=== PATIENT | female | born 1950 | race Caucasian/White ===

== ENCOUNTER → 2016-07-03 | Outpatient (CLI) | payer MEDICARE, OTHER ==
[~2016-07-03] MED LIST: ACID CONTROL150 M1 PO; DULOXETINE HCL60 MG PO; LIPITOR40 MG PO; LYRICA200 MG PO; METOPROLOL TAR25 MG PO; NEXIUM40 M1 PO; OXYCODON-ACETA1 EAC1 PO; REQUIP XL2 MG PO; SOTALOL AF80 M1 PO; XARELTO15 MG PO
--- NOTE | ~2016-07-03 | CR97 ---
[facility] A Service of [facility] & [facility] RADIOLOGY TEXT RESULTS PATIENT: BROWN CHAUDHRY LOCATION: [facility] : 48 UNIT #: [id number] AGE: [address]: Joseph Alvarenga III, MD SEX: F ORDER DR: [id number] [facility] [address] [place], [place] [address] [id number] O MR#: [id number] Acc #: [id number] NAME: BROWN CHAUDHRY : 1950 SEX: F STUDY DATE/TIME: 07/03/2016 8:16 UNIT: [facility] ROOM: STUDY DESCRIPTION: CR Esophagram Attending Physician: Joseph Alvarenga III, M.D. Referring Physician: Joseph Alvarenga III, M.D. Ordering Physician: Joseph Alvarenga III, M.D. MEDICAL IMAGING REPORT This report is preliminary unless electronic signature is present EXAM Barium esophagram INDICATIONS Morbid obesity. Preop for LAP-band surgery. TECHNIQUE The fluoroscopy time 0.4 minutes. 6 fluoroscopic images were taken. FINDINGS There are mild tertiary contractions. There is a small sliding hiatal hernia. The study is otherwise unremarkable. IMPRESSION Small sliding hiatal hernia, otherwise unremarkable. Dictated by... Dom Hernandez M.D. THIS IS AN ELECTRONICALLY VERIFIED REPORT Dom Hernandez M.D. at 07/04/2016 9:47 AM MISHA/pcl TD: 07/03/2016 20:13 JOB #: [id number] MEDICAL IMAGING REPORT Page 1 of 1 COPY
--- NOTE | ~2016-07-03 | CR63 ---
[facility] A Service of [facility] & [facility] RADIOLOGY TEXT RESULTS PATIENT: BROWN CHAUDHRY LOCATION: [facility] : 48 UNIT #: [id number] AGE: [address]: Joseph Alvarenga III, MD SEX: F ORDER DR: [id number] [facility] [address] [facility]. [place], [place] [address] [id number] O MR#: [id number] Acc #: [id number] NAME: BROWN CHAUDHRY : 1950 SEX: F STUDY DATE/TIME: 07/03/2016 7:25 UNIT: [facility] ROOM: STUDY DESCRIPTION: CR Chest 2 View Attending Physician: Joseph Alvarenga III, M.D. Referring Physician: Joseph Alvarenga III, M.D. Ordering Physician: Joseph Alvarenga III, M.D. Primary Care Physician: Tamela Oropeza MEDICAL IMAGING REPORT This report is preliminary unless electronic signature is present EXAM Chest PA and lateral 07/04/2015 HISTORY Shortness of breath on exertion. Morbid obesity, preop laparoscopic gastric banding. Benign essential hypertension. FINDINGS There is no prior chest radiograph for comparison. The heart is minimally enlarged status post median sternotomy. The lungs are clear. There are no pleural effusions. IMPRESSION Mild cardiac enlargement status post median sternotomy. No active pulmonary disease. Dictated by... Crispin Boo M.D. THIS IS AN ELECTRONICALLY VERIFIED REPORT Crispin Boo M.D. at 07/03/2016 4:30 PM CHRISSIE/vivek TD: 07/03/2016 11:14 JOB #: [id number] MEDICAL IMAGING REPORT Page 1 of 1 COPY
--- NOTE | ~2016-07-03 | EKG ---
PATIENT: BROWN CHAUDHRY UNIT #: [id number] Ventricular Rate: 72 BPM Atrial Rate: 72 BPM P-R Interval: 156 ms QRS Duration: 88 ms Q-T Interval: 402 ms QTC Calculation(Bezet): 440 ms Calculated R [place]: 8 degrees Calculated T [place]: 42 degrees Diagnosis Line: Sinus rhythm with Premature atrial complexes Diagnosis Line: Otherwise normal ECG Diagnosis Line: No previous ECGs available Diagnosis Line: Confirmed by EVELINA LEBLANC MD ([id number]) on Diagnosis Line: 07/03/2016 1:37:28 PM INTERPRETING MD: DEANA SHIELDS
[2016-07-03 09:17] LABS: HEMATOCRIT 36.5 % (35.0-45.0); HEMOGLOBIN 11.8 gm/dL (12.0-16.0); MEAN CELL VOLUME 91.5 FL (83-96); MEAN CORPUSCULAR HEMOGLOBIN 29.5 PG (28-34); MEAN CORPUSCULAR HGB CONC 32.2 g/dL (30-36); MEAN PLATELET VOLUME 7.8 FL (6.5-11.5); RED BLOOD COUNT 3.99 X10e (3.90-5.30); RED CELL DISTRIBUTION WIDTH 13.8 % (11.0-15.5); WHITE BLOOD COUNT 9.1 X10e3 (4.0-10.5)
[2016-07-03 09:51] LABS: ALBUMIN SERUM 3.5 g/dL (3.5-5.0); BILIRUBIN,TOTAL 0.8 mg/dL (0.2-2.0); BUN/CREATININE RATIO 32.85; CALCIUM SERUM 9.1 mg/dL (8.4-10.2); CREATININE SERUM 0.7 mg/dL (0.6-1.4); POTASSIUM 4.5 mmol/L (3.5-5.1); PROTEIN TOTAL SERUM 6.4 g/dL (6.0-8.3)
== END | disposition home or self-care (01) ==
LOC: CRAD 06:54 → CAMB 09:30
PROVIDERS: Surgery
DX: Z01.818 Encounter for other preprocedural examination (principal); K44.9 Diaphragmatic hernia without obstruction or gangrene; I49.1 Atrial premature depolarization; I51.7 Cardiomegaly; E66.01 Morbid (severe) obesity due to excess calories; Z98.890 Other specified postprocedural states
CPT/HCPCS: 36415; 71020; 74220; 80053; 80061; 84443; 85027; 93005

== ENCOUNTER 2016-07-15 06:07 | Inpatient (IN) | payer MEDICARE, OTHER ==
--- NOTE | ~2016-07-15 | HP ---
Unit #: [id number] #: [id number] Patient: BROWN CHAUDHRY [id number] [facility] [address] [facility]. [place], [place] [address] [id number] I MR#: [id number] NAME: BROWN CHAUDHRY ROOM: 463 Age: 66 Sex: F Admission Date: 07/17/2016 : 1950 Attending Physician: Joseph Alvarenga III, M.D. Primary Care Physician: Tamela Oropeza HISTORY AND PHYSICAL CHIEF COMPLAINT Postoperative anemia. HISTORY OF PRESENT ILLNESS The patient is a 66-year-old white female who is 3 days status post lap band procedure for obesity. She went home without major problems. There were no complications during her surgery according to Dr. Alvarenga, but she did not drink much at home and became confused yesterday with weakness. She was taken to the emergency room by her family and noted to have a hemoglobin of 5.5.6. Her hemoglobin initially was 11.8 approximately a week and a half ago. The patient was transfused three units of blood and stat flighted to [facility] for further care. PAST MEDICAL HISTORY Her history is unchanged since three days ago when she had her surgery. PHYSICAL EXAMINATION GENERAL: The patient is a well-developed, well-nourished 66-year-old white female in no acute distress. VITALS: The patient is afebrile. Vital signs are normal. Her pulse is 98. HEENT: Unremarkable. NECK: Supple. LUNGS: Clear bilaterally. CHEST: Equal bilateral expansion with bilaterally equal breath sounds. HEART: Regular rhythm without murmurs or gallops. There is no evidence of cardiomegaly clinically. ABDOMEN: Soft. Mildly tender with a large ecchymotic area in the left upper quadrant abdominal wall region, without evidence of any significant hematoma. Wounds are clean and healing with no evidence of infection of herniation. There are no masses or organomegaly. No gross abdominal distension. No guarding or rebound. Active bowel sounds present. No evidence of any hernias, as noted above. BACK: There is no CVA tenderness. NEUROLOGIC: Grossly intact without evidence of any deficits. DIAGNOSTIC STUDIES IMAGING: CT scan in the emergency room in [place] revealed evidence of free fluid in the abdomen and probably some blood. There was no evidence of any splenic rupture. ASSESSMENT The patient has significant postoperative bleed following lap band procedure. Unit #: [id number] #: [id number] Patient: BROWN CHAUDHRY PLAN Observe her for now and transfuse her as necessary. At present it does not appear that the patient will need any further surgery. Dictated by Peewee Miller Jr., M.D. JMB/krysten TD: 07/18/2016 07:43 JOB #: [id number] HISTORY AND PHYSICAL Page 1 of 1 X Peewee Miller MD X HISTORY AND PHYSICAL
--- NOTE | ~2016-07-15 | DS ---
Unit #: [id number] #: [id number] Patient: BROWN CHAUDHRY [id number] [facility]. [place], [place] [address] [id number] I MR#: [id number] NAME: BROWN CHAUDHRY ROOM: 463 Age: 66 Sex: F Admission Date: 07/20/2016 : 1950 Discharge Date: 07/22/2016 Attending Physician: Joseph Alvarenga III, M.D. Primary Care Physician: Tamela Oropeza DISCHARGE SUMMARY REVISED REPORT CONSULTATION Dr. Clemens. ADMITTING/DISCHARGE DIAGNOSIS Status post lap band with postop anemia secondary to bleeding. SECONDARY DIAGNOSES History of atrial flutter with rapid ventricular response and significant tachycardia. PROCEDURE PERFORMED None. BRIEF HOSPITAL COURSE This is a 66-year-old lady who was admitted several days after undergoing lap banding. She was diagnosed with severe anemia and was transferred here to [place]. She underwent transfusion and since then her hemoglobin has steadily gone upwards every day. At the time of discharge, her hemoglobin was 10 and at the time of admission her hemoglobin was 5.6. She also developed some significant tachycardia for which we consulted cardiology. There were numerous medication changes that had to take place. Prior to discharge, her hemoglobin was stable and her heart rate had come down to the 70s and 80s. She was tolerating liquids without any difficulty. DISPOSITION Discharge to home. She is to follow up with me in the office next week for routine lap band followup. She is to resume her lap band discharge instructions that were given to her last week. Will have cardiology address her Med Rec form since there have been numerous changes to her heart medications. She has been instructed to call us if there are any other problems. Dictated by... Joseph Alvarenga III, M.D. VCL/arnold TD: 07/22/2016 12:51 Unit #: [id number] #: [id number] Patient: BROWN CHAUDHRY JOB #: [id number] DISCHARGE SUMMARY Page 1 of 1 X Joseph Alvarenga III, MD X DISCHARGE SUMMARY
--- NOTE | ~2016-07-15 | CR7 ---
[facility] A Service of [facility] & [facility] RADIOLOGY TEXT RESULTS PATIENT: BROWN CHAUDHRY LOCATION: [facility] : 48 UNIT #: [id number] AGE: [address]: Joseph Alvarenga III, MD SEX: F ORDER DR: [id number] [facility] [address] [facility]. [place], [place] [address] [id number] O MR#: [id number] Acc #: [id number] NAME: BROWN CHAUDHRY : 1950 SEX: F STUDY DATE/TIME: 07/15/2016 8:34 UNIT: [facility] ROOM: STUDY DESCRIPTION: CR Abdomen Single AP View Attending Physician: Joseph Alvarenga III, M.D. Ordering Physician: Joseph Alvarenga III, M.D. Primary Care Physician: Tamela Oropeza MEDICAL IMAGING REPORT This report is preliminary unless electronic signature is present EXAM AP radiograph of the abdomen, 07/15/2016 HISTORY Postop Lap-Band PACU front. FINDINGS AP radiograph of the abdomen is presented. The patient is status post median sternotomy. Metallic density superimposed over the heart may represent some form of valvular replacement. Correlate with history. Prior cholecystectomy. There is a linear metallic density superimposed over the central and right paracentral thoracolumbar junction of unclear exact etiology. Also seen on prior esophagram. It may reflect some prior intervention. Correlate with history. Interval placement of a Lap-Band device, the band component of which is at the level of the gastroesophageal junction based on esophagram dated 07/03/2016. Band component approximately 58 degrees from the vertical. Catheter component intact. Port component implanted over the upper left paracentral pelvis. Bowel gas pattern is normal. Extensive air space disease in the visualized bilateral lung bases, left greater than right. This is new in comparison to the recent esophagram and is concerning for potential bibasilar pneumonia. Some components of atelectasis could be present. Given distribution, correlate with any clinical concern for aspiration. Follow-up to resolution recommended. Dictated by... Shiva Ralph M.D. THIS IS AN ELECTRONICALLY VERIFIED REPORT Shiva Ralph M.D. at 07/16/2016 8:25 AM Albert [facility] A Service of [facility] & [facility] RADIOLOGY TEXT RESULTS PATIENT: BROWN CHAUDHRY LOCATION: [facility] : 48 UNIT #: [id number] AGE: [address]: Joseph Alvarenga III, MD SEX: F ORDER DR: TD: 07/15/2016 10:18 JOB #: [id number] MEDICAL IMAGING REPORT Page 1 of 1 COPY
--- NOTE | ~2016-07-15 | EKG ---
PATIENT: BROWN CHAUDHRY UNIT #: [id number] Ventricular Rate: 135 BPM Atrial Rate: 270 BPM QRS Duration: 92 ms Q-T Interval: 300 ms QTC Calculation(Bezet): 450 ms Calculated R Mongo: 10 degrees Calculated T Mongo: 180 degrees Diagnosis Line: Supraventricular tachycardia Diagnosis Line: Nonspecific ST and T wave abnormality Diagnosis Line: Abnormal ECG Diagnosis Line: When compared with ECG of 03-JUL-2016 08:42, Diagnosis Line: Significant changes have occurred Diagnosis Line: Confirmed by GEOVANNI UNDERWOOD MD ([id number]) on Diagnosis Line: 07/21/2016 9:06:18 PM INTERPRETING MD: ANNETTE
--- NOTE | ~2016-07-15 | CO ---
Unit #: [id number] #: [id number] Patient: BROWN CHAUDHRY [id number] [address] [address] [id number] I MR#: [id number] NAME: BROWN CHAUDHRY ROOM: 463 Age: 66 Sex: F Admission Date: 07/20/2016 : 1950 Attending Physician: Joseph Alvarenga III, M.D. Primary Care Physician: Tamela Oropeza CONSULTATION REPORT PRIMARY CARE PHYSICIAN Dr. Tamela Oropeza. REASON FOR CONSULTATION Tachycardia. HISTORY OF PRESENT ILLNESS This is a 66-year-old white female, who is known to have coronary artery disease, for which she had coronary artery bypass graft x1 with tissue mitral valve replacement in 02/2014 at [facility] in [place], [place]. She is known to have atrial fibrillation with history of direct current cardioversion and is on anticoagulation with Xarelto. She underwent a lap band surgery on 07/15/2016 and afterwards, she developed a bout of confusion. The daughter took her to the emergency room at [facility] in [place], [place], where she was found to be severely anemic with hemoglobin of 5.7. Her last recorded hemoglobin at this facility in June was 11.8. CT of the abdomen and pelvis showed free intraperitoneal fluid, that possibly represented blood. She was transfused with 3 units of packed red blood cells. During the course of her stay, the patient was tachycardic with heart rate up to 135 beats per minute. Electrocardiogram found the patient to be in atrial flutter with rapid ventricular response. The patient is unaware of palpitations. She has no chest pain or dyspnea. Hemoglobin has improved to 9.8, but noted to have a low magnesium level of 1.3. Her home dose of metoprolol was withheld because of n.p.o. status for couple days, but it was restarted yesterday. PAST MEDICAL HISTORY 1. Coronary artery bypass graft x1 with tissue mitral valve replacement in 02/2014 at [facility] in [place], [place]. 2. Atrial fibrillation with history of direct current cardioversion. 3. Hypertension. 4. Hyperlipidemia. 5. Obstructive sleep apnea, wears CPAP. 6. Fibromyalgia. 7. Depression/anxiety. 8. GERD. 9. Obesity, status post lap band surgery on 07/15/2016. 10. Former smoker. PAST SURGICAL HISTORY As stated above. 1. Left hand surgery. 2. Hysterectomy. Unit #: [id number] #: [id number] Patient: BROWN CHAUDHRY 3. Laparoscopic cholecystectomy. 4. Hernia repair. 5. Bladder surgery. 6. Left knee surgery. SOCIAL HISTORY The patient is . She quit smoking years ago. She denies illicit drug and alcohol use. FAMILY HISTORY Noncontributory. ALLERGIES No known drug allergies. HOME MEDICATIONS 1. Lipitor 40 mg at bedtime. 2. Cymbalta 60 mg at bedtime. 3. Metoprolol tartrate 25 mg b.i.d. 4. Xarelto 15 mg every evening. 5. Requip XL 2 mg at bedtime p.r.n. 6. Zantac 150 mg at bedtime p.r.n. 7. Nexium 40 mg daily. 8. Lyrica 200 mg b.i.d. 9. Oxycodone/acetaminophen 7.5/325 one q.6 hours p.r.n. REVIEW OF SYSTEMS CONSTITUTIONAL: Negative for fever or chills. Reports no weight gain or weight loss. HEENT: No headache, vision changes, or difficulty with swallowing. No dizziness. CARDIOVASCULAR: No symptoms of angina. Denies palpitations. No paroxysmal nocturnal dyspnea or orthopnea. No syncope or near syncope. RESPIRATORY: Negative for dyspnea, cough, or hemoptysis. GASTROINTESTINAL: Denies current abdominal discomfort, nausea, or vomiting. No constipation. No melena. EXTREMITIES: Negative for lower extremity edema. PHYSICAL EXAMINATION VITAL SIGNS: Blood pressure 140/87, heart rate 133, temperature 98.5. BMI is 35. GENERAL: This is a 66-year-old obese white female, who is in no acute respiratory distress. NEUROLOGIC: She is awake, alert, and oriented. There are no focal weaknesses. NECK: Trachea is midline. No thyromegaly or lymphadenopathy. No jugular venous distention. HEART: S1 and S2. Heart sounds are normal. No murmurs. No rubs or clicks. Regular rate and rhythm, that is tachycardic. ABDOMEN: Soft and nontender with bowel sounds are present. EXTREMITIES: Without leg edema. SKIN: Warm and dry. Noted for significant bruising in her upper abdomen. DIAGNOSTIC STUDIES LABORATORY STUDIES: Glucose of 118, BUN 13, creatinine 0.7, sodium 138, potassium 3.5, magnesium 1.3. White count 8.9, hemoglobin 9.8, hematocrit 29.4, and platelet count 131. Unit #: [id number] #: [id number] Patient: BROWN CHAUDHRY CARDIOVASCULAR STUDIES: EKG; atrial flutter with 2-1 conduction with a rate of 135 beats per minute. There is nonspecific ST-wave abnormality. Questionable old anterior infarct. IMPRESSION 1. Severe anemia, status post 3 units packed red blood cells. 2. Atrial fibrillation/flutter with rapid ventricular response. 3. History of coronary artery bypass graft x1 with tissue mitral valve replacement. 4. Hypertension. 5. Hyperlipidemia. 6. Obstructive sleep apnea. 7. Recent lap band surgery. 8. Hypomagnesemia. PLAN 1. Cardiology was consulted for atrial fibrillation/flutter. We will continue beta-magalie. Start the patient on Cardizem drip. 2. Supplement electrolytes. 3. We will obtain records from [facility] of echo report and cardiology notes. 4. We will follow the patient with you. Thank you for allowing us to assist with this patient's care. Dictated by... Bryan SchererPOmiROmiNOmi for Jon Weldon/darryn TD: 07/21/2016 14:34 JOB #: [id number] CONSULTATION REPORT Page 1 of 1 X Petr Mendez APRN X CONSULTATION REPORT
--- NOTE | ~2016-07-15 | EKG ---
PATIENT: BROWN CHAUDHRY UNIT #: [id number] Ventricular Rate: 67 BPM Atrial Rate: 67 BPM P-R Interval: 138 ms QRS Duration: 84 ms Q-T Interval: 450 ms QTC Calculation(Bezet): 475 ms P Webb: -78 degrees Calculated R Webb: 35 degrees Calculated T Webb: 65 degrees Diagnosis Line: Unusual P axis and short MI, probable junctional Diagnosis Line: rhythm Diagnosis Line: Abnormal ECG Diagnosis Line: When compared with ECG of 20-JUL-2016 10:58, Diagnosis Line: Junctional rhythm has replaced Sinus rhythm Diagnosis Line: Vent. rate has decreased BY 68 BPM Diagnosis Line: ST no longer depressed in Inferior leads Diagnosis Line: Diagnosis Line: Confirmed by RENATE KELLY MD ([id number]) on 07/22/2016 Diagnosis Line: 7:47:07 AM INTERPRETING MD: LETICIA SHIELDS
--- NOTE | ~2016-07-15 | CT16 ---
[facility] A Service of [facility] RADIOLOGY TEXT RESULTS PATIENT: BROWN CHAUDHRY LOCATION: [facility] 463-01 : 48 UNIT #: [id number] AGE: [address]: Joseph Alvarenga III, MD SEX: F ORDER DR: [id number] [facility]. [place], [place] [address] [id number] I MR#: [id number] Acc #: [id number] NAME: BROWN CHAUDHRY : 1950 SEX: F STUDY DATE/TIME: 07/21/2016 2:36 UNIT: [facility] ROOM: [facility] STUDY DESCRIPTION: CT Angio Chest for PE Attending Physician: Joseph Alvarenga III, M.D. Ordering Physician: Skip Isaac M.D. Primary Care Physician: Tamela Oropeza MEDICAL IMAGING REPORT This report is preliminary unless electronic signature is present EXAM CT scan of the chest with pulmonary embolus protocol INDICATION Abdominal surgery recently with elevated D-dimer of 10,000. Left shoulder pain and shortness of air beginning today. TECHNIQUE Patient was given 100 mL of Isovue-370 and spiral imaging was performed through the chest. 3D reconstructions of the pulmonary arteries were generated. This CT exam was performed with one or more of the following radiation dose reduction techniques: Automatic exposure control, adjustment of mA and/or kV according to patient size, and iterative reconstruction. FINDINGS The aorta is normal in size and there is no dissection. The pulmonary arteries are adequately opacified and there is no CT evidence of pulmonary embolus. There is no mediastinal or hilar adenopathy. The visualized portions of the upper abdomen show previous gastric banding and there is a renal calcification or stone on the right side measuring 5 mm in diameter. The gallbladder has been removed. There are mild emphysematous changes in the upper lobes. No nodules or infiltrates are identified. IMPRESSION 1. There is no Ct evidence for pulmonary embolus. 2. There are no infiltrates. Dictated by... Alexis Padron M.D. [facility] A Service of [facility] RADIOLOGY TEXT RESULTS PATIENT: BROWN CHAUDHRY LOCATION: [place] [address]- : 48 UNIT #: [id number] AGE: [address]: Joseph Alvarenga III, MD SEX: F ORDER DR: THIS IS AN ELECTRONICALLY VERIFIED REPORT Alexis Padron M.D. at 07/21/2016 1:21 PM Miya TD: 07/21/2016 10:21 JOB #: [id number] MEDICAL IMAGING REPORT Page 1 of 1 COPY
--- NOTE | ~2016-07-15 | OR ---
Unit #: [id number] #: [id number] Patient: BROWN CHAUDHRY [id number] [facility] [address]. [place], [place] [address] [id number] MR#: [id number] NAME: BROWN CHAUDHRY ROOM: Date of Procedure: 07/15/2016 Admission Date: 07/15/2016 Surgeon: Joseph Alvarenga III, M.D. : 1950 Attending Physician: Joseph Alvarenga III, M.D. Primary Care Physician: Tamela Oropeza OPERATIVE REPORT PREOPERATIVE DIAGNOSIS Chronic severe obesity. POSTOPERATIVE DIAGNOSIS Chronic severe obesity. SECONDARY DIAGNOSIS Anterior paraesophageal hernia. PROCEDURES PERFORMED Laparoscopic adjustable gastric banding (AP standard with low-profile port) and laparoscopic paraesophageal hernia repair. SEATER GRINDER Dr. Shiva Mcdowell. SPECIMENS None. COMPLICATIONS None apparent. ESTIMATED BLOOD LOSS Minimal. INDICATIONS FOR PROCEDURE This is a 66-year-old lady, who has chronic severe obesity with a BMI of 37 and associated comorbidities of sleep apnea, reflux, and hypertension. She has been through the bariatric program at [facility] and understands the risks and benefits of the procedure. DESCRIPTION OF PROCEDURE After consent was obtained, including the risks and benefits of slippage, erosion, port dysfunction, and possible failure of weight loss due to noncompliance, the patient was taken to the operating room and placed in the supine position. General anesthetic was administered and the abdomen was prepped and draped in standard surgical fashion. I began by making a 2 cm incision just above and to the left of the umbilicus. I used a Visiport to enter the peritoneal cavity without any difficulty. C02 pneumoperitoneum was then established. Next, I placed a 5 mm port in the right upper quadrant, a 5 mm Monica liver retractor in Unit #: [id number] #: [id number] Patient: BROWN CHAUDHRY the subxiphoid region to provide exposure of the gastroesophageal junction. Next, a 10 mm port was placed in the left upper quadrant and a 5 mm port was placed in the left lateral subcostal region. I began by performing an examination of the GE junction to evaluate for a hiatal hernia. We then scored the peritoneal attachments overlying the angle of His. I then opened up the clear space in the gastrohepatic ligament, and then using 2 blunt graspers, I identified the small fat pad crossing over the right crura. I swept the fat anterior to the crura off the crura and using the pars flaccida, I created a retrogastric tunnel where the blunt grasper exited at the angle of His. Once I had made this tunnel safely, I then inserted an Allergan AP band into the abdominal cavity. This adjustable gastric band was then place around the upper part of the stomach and fastened and buckled anteriorly. We then tacked the lateral fundus over the band to the proximal pouch with 2 interrupted 0 Ethibond sutures. I then used a third stitch to imbricate the excess anterior stomach by going from the lesser curvature up towards where the last stitch was placed. We then had excellent hemostasis. I removed the Monica liver retractor. We then removed the port tubing through the initial port incision. The rest of the ports were removed, and the pneumoperitoneum was released. I then left a small tail on the tubing. We then attached the port to the excess band tubing. We placed a piece of Prolene mesh along the back side of the port and used a Prolene stitch to anchor this mesh in place. We then trimmed the excess mesh so that just a small footprint of mesh was in place behind the port. I then inserted the tubing back into the abdominal cavity, and we placed the port into a small pocket that was made just inferior to where our initial port incision was made. The mesh was in direct contact with the fascia, and this will scar in place to hold the port in place. We then injected all the port sites with 0.25% plain Marcaine, and I reapproximated the skin edges with interrupted 4-0 Vicryl subcuticular sutures. Steri-strips were then applied. The patient tolerated the procedure without any problems and returned to the recovery room in stable condition. ADDENDUM After exposure of the GE junction, the patient was noted to have a small to medium sized anterior paraesophageal hernia. I scored the phrenoesophageal ligament, reduced the hernia defect, and after dissecting out the hernia sac, I identified both the right and left crura. I reapproximated the defect with an interrupted 0 Ethibond [id number] suture and then proceeded with the case as listed above. Dictated by... Joseph Alvarenga III, M.D. VCL/darryn TD: 07/16/2016 07:10 JOB #: [id number] Unit #: [id number] #: [id number] Patient: BROWN CHAUDHRY OPERATIVE REPORT Page 1 of 1 X Joseph Alvarenga III, MD PROCEDURE OPERATIVE NOTE
[~2016-07-15 06:07] MED LIST changes: -SOTALOL AF80 M1 PO
[2016-07-18 06:32] LABS: BASOPHIL% 0.2 % (0-2.5); EOSINOPHIL# 0.3 X10e3 (0-0.7); EOSINOPHIL% 3.7 % (0.0-7.0); HEMATOCRIT 25.6 % (35.0-45.0); HEMOGLOBIN 8.6 gm/dL (12.0-16.0); LYMPHOCYTE# 1.2 X10e3 (1.0-3.5); LYMPHOCYTE% 13.6 % (17.0-45.0); MEAN CELL VOLUME 89.3 FL (83-96); MEAN CORPUSCULAR HGB CONC 33.6 g/dL (30-36); MEAN PLATELET VOLUME 7.5 FL (6.5-11.5); MONOCYTE# 1.2 X10e3 (0-1.0); MONOCYTE% 13.4 % (3.0-12.0); NEUTROPHIL# 6.1 X10e3 (1.5-7.1); NEUTROPHIL% 69.1 % (40-75); PLATELET COUNT 122 X10e3 (140-420); RED BLOOD COUNT 2.86 X10e (3.90-5.30); RED CELL DISTRIBUTION WIDTH 14.5 % (11.0-15.5); WHITE BLOOD COUNT 8.9 X10e3 (4.0-10.5)
[2016-07-18 06:34] LABS: DIFF IND NO
[2016-07-18 08:15] LABS: HEMATOCRIT 25.8 % (35.0-45.0); HEMOGLOBIN 8.8 gm/dL (12.0-16.0)
[2016-07-18 09:12] LABS: INR 1.1; PARTIAL THROMBOPLASTIN TIME 23.8 SECONDS (23.5-31.3); PROTHROMBIN TIME (PATIENT) 11.5 SECONDS (9.6-11.5)
[2016-07-18 17:58] LABS: HEMATOCRIT 29.8 % (35.0-45.0); HEMOGLOBIN 9.5 gm/dL (12.0-16.0)
[2016-07-19 01:13] LABS: HEMATOCRIT 28.1 % (35.0-45.0); HEMOGLOBIN 9.5 gm/dL (12.0-16.0)
[2016-07-19 09:14] LABS: BASOPHIL% 0.2 % (0-2.5); EOSINOPHIL# 0.2 X10e3 (0-0.7); EOSINOPHIL% 3.2 % (0.0-7.0); HEMATOCRIT 26.5 % (35.0-45.0); HEMOGLOBIN 8.8 gm/dL (12.0-16.0); LYMPHOCYTE# 0.9 X10e3 (1.0-3.5); LYMPHOCYTE% 13.7 % (17.0-45.0); MEAN CELL VOLUME 90.4 FL (83-96); MEAN CORPUSCULAR HGB CONC 33.2 g/dL (30-36); MEAN PLATELET VOLUME 7.9 FL (6.5-11.5); MONOCYTE% 16.1 % (3.0-12.0); NEUTROPHIL# 4.3 X10e3 (1.5-7.1); NEUTROPHIL% 66.8 % (40-75); PLATELET COUNT 121 X10e3 (140-420); RED BLOOD COUNT 2.94 X10e (3.90-5.30); RED CELL DISTRIBUTION WIDTH 14.8 % (11.0-15.5); WHITE BLOOD COUNT 6.4 X10e3 (4.0-10.5)
[2016-07-19 09:16] LABS: DIFF IND NO
[2016-07-19 09:49] LABS: CALCIUM SERUM 8.4 mg/dL (8.4-10.2); CREATININE SERUM 0.7 mg/dL (0.6-1.4); MAGNESIUM 1.5 mg/dL (1.6-3.0); PHOSPHOROUS 2.1 mg/dL (2.5-4.6)
[2016-07-20 07:00] LABS: BASOPHIL% 0.4 % (0-2.5); EOSINOPHIL# 0.2 X10e3 (0-0.7); EOSINOPHIL% 2.6 % (0.0-7.0); HEMATOCRIT 29.4 % (35.0-45.0); HEMOGLOBIN 9.8 gm/dL (12.0-16.0); LYMPHOCYTE% 11.7 % (17.0-45.0); MEAN CELL VOLUME 90.2 FL (83-96); MEAN CORPUSCULAR HEMOGLOBIN 30.2 PG (28-34); MEAN CORPUSCULAR HGB CONC 33.4 g/dL (30-36); MEAN PLATELET VOLUME 7.3 FL (6.5-11.5); MONOCYTE# 1.3 X10e3 (0-1.0); MONOCYTE% 14.9 % (3.0-12.0); NEUTROPHIL# 6.3 X10e3 (1.5-7.1); NEUTROPHIL% 70.4 % (40-75); PLATELET COUNT 131 X10e3 (140-420); RED BLOOD COUNT 3.25 X10e (3.90-5.30); RED CELL DISTRIBUTION WIDTH 14.4 % (11.0-15.5); WHITE BLOOD COUNT 8.9 X10e3 (4.0-10.5)
[2016-07-20 07:07] LABS: DIFF IND NO
[2016-07-20 13:04] LABS: BUN/CREATININE RATIO 18.57; CALCIUM SERUM 8.6 mg/dL (8.4-10.2); CREATININE SERUM 0.7 mg/dL (0.6-1.4); MAGNESIUM 1.3 mg/dL (1.6-3.0); POTASSIUM 3.5 mmol/L (3.5-5.1)
[2016-07-21 03:24] LABS: BASOPHIL% 0.3 % (0-2.5); EOSINOPHIL# 0.2 X10e3 (0-0.7); EOSINOPHIL% 1.7 % (0.0-7.0); HEMATOCRIT 29.3 % (35.0-45.0); HEMOGLOBIN 9.8 gm/dL (12.0-16.0); LYMPHOCYTE# 1.1 X10e3 (1.0-3.5); LYMPHOCYTE% 11.9 % (17.0-45.0); MEAN CELL VOLUME 89.4 FL (83-96); MEAN CORPUSCULAR HGB CONC 33.5 g/dL (30-36); MEAN PLATELET VOLUME 8.1 FL (6.5-11.5); MONOCYTE# 1.5 X10e3 (0-1.0); MONOCYTE% 16.1 % (3.0-12.0); NEUTROPHIL# 6.4 X10e3 (1.5-7.1); PLATELET COUNT 120 X10e3 (140-420); RED BLOOD COUNT 3.28 X10e (3.90-5.30); RED CELL DISTRIBUTION WIDTH 14.5 % (11.0-15.5); WHITE BLOOD COUNT 9.1 X10e3 (4.0-10.5)
[2016-07-21 03:25] LABS: DIFF IND NO
[2016-07-21 03:49] LABS: BUN/CREATININE RATIO 21.66; CALCIUM SERUM 8.2 mg/dL (8.4-10.2); CREATININE SERUM 0.6 mg/dL (0.6-1.4); GLOM FILT RATE Estimated 93.7 mL/min (>60); MAGNESIUM 1.8 mg/dL (1.6-3.0)
[2016-07-22 03:14] LABS: HEMATOCRIT 30.4 % (35.0-45.0); HEMOGLOBIN 10.1 gm/dL (12.0-16.0); MEAN CORPUSCULAR HEMOGLOBIN 30.2 PG (28-34); MEAN CORPUSCULAR HGB CONC 33.2 g/dL (30-36); MEAN PLATELET VOLUME 7.8 FL (6.5-11.5); RED BLOOD COUNT 3.34 X10e (3.90-5.30); RED CELL DISTRIBUTION WIDTH 14.8 % (11.0-15.5); WHITE BLOOD COUNT 9.9 X10e3 (4.0-10.5)
[2016-07-22 03:48] LABS: BUN/CREATININE RATIO 33.33; CALCIUM SERUM 8.3 mg/dL (8.4-10.2); CREATININE SERUM 0.6 mg/dL (0.6-1.4); GLOM FILT RATE Estimated 93.7 mL/min (>60); POTASSIUM 3.3 mmol/L (3.5-5.1)
[2016-07-22] MEDS ORDERED: SOTALOL AF80 M1 PO (17:17)
== END 2016-07-22 19:50 | disposition home or self-care (01) | DRG 982 ==
LOC: CSUR 06:07 → C4C 07-17 22:40 → CSUR 07-17 22:40 → C4C 07-17 22:44
PROVIDERS: Nurse Practitioner; Specialist; Surgery
PROC: 0BQS4ZZ (ICD-10-PCS; principal; 2016-07-20)
PROC: 0BQR4ZZ (ICD-10-PCS; 2016-07-20)
PROC: 0DV64CZ Restriction of Stomach with Extraluminal Device, Percutaneous Endoscopic Approach (ICD-10-PCS; 2016-07-20)
DX: I48.91 Unspecified atrial fibrillation (principal); K91.841 Postprocedural hemorrhage of a digestive system organ or structure following other procedure; D62 Acute posthemorrhagic anemia; I10 Essential (primary) hypertension; Z95.1 Presence of aortocoronary bypass graft; Z95.2 Presence of prosthetic heart valve; R00.0 Tachycardia, unspecified; E83.42 Hypomagnesemia; Y83.9 Surgical procedure, unspecified as the cause of abnormal reaction of the patient, or of later complication, without mention of misadventure at the time of the procedure; K21.9 Gastro-esophageal reflux disease without esophagitis; Z90.49 Acquired absence of other specified parts of digestive tract; Z90.710 Acquired absence of both cervix and uterus; G47.33 Obstructive sleep apnea (adult) (pediatric); M79.7 Fibromyalgia; F32.9 Major depressive disorder, single episode, unspecified; F41.9 Anxiety disorder, unspecified; E66.9 Obesity, unspecified; K44.9 Diaphragmatic hernia without obstruction or gangrene; Z68.37 Body mass index [BMI] 37.0-37.9, adult
CPT/HCPCS: 71275; 74000; 80048; 83735; 84100; 85014; 85018; 85025; 85027; 85379; 85610; 85730; 86850; 86900; 86901; 86923; 90732; 93005; 94760; C1781; G0009; J0330; J0690; J1650; J1885; J2250; J2270; J2405; J2550; J2710; J3010; J3475; J3490; Q9967